=== PATIENT | male | born 1970 | race American Indian/Alaskan Native ===

== ENCOUNTER 2020-09-28 09:45 | Emergency (ER) | payer BC ==
[2020-09-28 09:56] VITALS: BP 142/94; PULSE 63
--- NOTE | 2020-09-28 10:13 | EDM.PDOC ---
ED HPI GENERAL MEDICAL PROBLEM - General Chief Complaint: General Stated Complaint: [facility] Time Seen by Provider: 09/28/20 09:56 Source of Information: Reports: Patient History Limitations: Reports: No Limitations - History of Present Illness INITIAL COMMENTS - FREE TEXT/NARRATIVE: 50-year-old male of [place] ancestry presents to the ED per [facility]. Patient reports that he appreciated numbness tingling and perhaps some mild weakness in his left lower extremity last evening I greater than 12 hours ago. Last known well time was estimated to be around 1800 hrs. last evening. Was still present this morning. He can still walk fairly normally does not feel really off balance. Denies any recent falls or closed head injuries. No history of CVA. He has a history of hypertension has been off medication for over a week. He is also been off several other medications of which we are trying to obtain the names of. He is not diabetic. Has a mild headache. No nausea or vomiting no visual acuity changes. He has not had COVID-19 illness. No past history of cerebrovascular disease. Patient states he is prone to muscle cramps particularly back arms and lower extremities. Of note the patient did take 2 baby aspirin's at home this morning before coming to the ED. Onset: Gradual Onset Date: 09/27/20 Duration: Hour(s):, Constant Location: Reports: Head (With headache.), Lower Extremity, Left (Left lower extremity paresthesias and perhaps mild weakness.) Quality: Reports: Other (CC is left lower extremity.) Severity: Mild Improves with: Reports: None Worsens with: Reports: None Context: Denies: Activity, Exercise, Lifting, Sick Contact, Trauma, Other Associated Symptoms: Reports: Headaches, Weakness. 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 None.) - Related Data Allergies Allergy/AdvReac Type Severity Reaction Status Date / Time No Known Allergies Allergy Verified 09/28/20 09:55 Home Meds: Home Meds Aspirin 81 mg PO DAILY 09/28/20 [History] Cholecalciferol (Vitamin D3) [Vitamin D3] 5,000 mg PO DAILY 09/28/20 [History] atorvaSTATin [Lipitor] 40 mg PO DAILY 09/28/20 [History] lisinopriL [Lisinopril] 5 mg PO DAILY 09/28/20 [History] Past Medical History - Past Health History Medical/Surgical History: Denies Medical/Surgical History Cardiovascular History: Reports: Hypertension Social & Family History - Living Situation & Occupation Living situation: Reports: Occupation: Employed ED ROS GENERAL - Review of Systems Review Of Systems: See Below Constitutional: Reports: Weakness, Fatigue. Denies: Fever, Chills, Malaise, Decreased Appetite (Left lower extremity.), Weight Loss HEENT: Reports: Glasses Respiratory: Reports: No Symptoms Cardiovascular: Reports: No Symptoms Endocrine: Reports: No Symptoms GI/Abdominal: Reports: No Symptoms. Denies: Diarrhea, Nausea, Vomiting : Reports: No Symptoms Musculoskeletal: Reports: No Symptoms Skin: Reports: No Symptoms Neurological: Reports: Headache (Mild headache.), Numbness, Tingling (Left lower extremity numbness tingling), Weakness. Denies: Confusion, Dizziness, Pre- Existing Deficit, Seizure, Syncope, Tremors, Trouble Speaking (Reps mild weakness left lower extremity.), Difficulty Walking, Change in Speech, Gait Disturbance, Other Psychiatric: Reports: No Symptoms Hematologic/Lymphatic: Reports: No Symptoms Immunologic: Reports: No Symptoms ED EXAM, GENERAL - Physical Exam Exam: See Below Exam Limited By: No Limitations (Very vague historian.) General Appearance: Alert, WD/WN, No Apparent Distress, Other (Temperature is 36.1. Heart rate 63 and sinus respiratory is 18 with O2 sats of 98% room air BP 142/94.) Eye Exam: Bilateral Eye: Normal Inspection, PERRL Throat/Mouth: Normal Inspection, Normal Lips, Normal Teeth, Normal Oropharynx, Other ([place]ather is in the midline.) Head: Atraumatic, Normocephalic Neck: Normal Inspection, Supple, Non-Tender, Full Range of Motion. No: Carotid Bruit, Lymphadenopathy (L), Lymphadenopathy (R) Respiratory/Chest: No Respiratory Distress, Lungs Clear, Normal Breath Sounds, No Accessory Muscle Use Cardiovascular: Normal Peripheral Pulses, Regular Rate, Rhythm, No Edema, No Gallop, No Murmur, No Rub Peripheral Pulses: 3+: Carotid (L), Carotid (R), Posterior Tibial (L), Posterior Tibial (R), Dorsalis Pedis (L), Dorsalis Pedis (R) GI/Abdominal: Normal Bowel Sounds, Soft, Non-Tender, No Organomegaly, No Abnormal Bruit, No Mass, Other (No surgical scars) (Male) Exam: Deferred Back Exam: Normal Inspection, Full Range of Motion. No: CVA Tenderness (L), CVA Tenderness (R) Extremities: Normal Inspection, Normal Range of Motion, Non-Tender, No Pedal Edema Neurological: Alert, Oriented, CN II-XII Intact, Normal Cognition, Normal Gait (Had a mall walking in the hallway and he had absolutely no problems with), No Motor/Sensory Deficits ( his gait.), Other (No motor power or strength deficits identified in any of his extremities. Rapid alternating movements [id number] and fgkl-[id number] tests were all normal. Negative Romberg sign as well.) Psychiatric: Normal Mood, Flat Affect Skin Exam: Warm, Dry, Intact, Normal Color, No Rash #1 Interpretation EKG Date: 09/28/20 Time: 11:34 Rhythm: NSR Rate (Beats/Min): 63 Reserve: Normal P-Wave: Present QRS: Other (Q waves V1 and V2 consider old anteroseptal myocardial infarction mildly decreased voltage in both limb and precordial leads) ST-T: Other (Nonspecific T wave flattening in lead III only) QT: Normal EKG Interpretation Comments: Abnormal ECG Course - Vital Signs Last Recorded V/S: Last Vital Signs Temp 36.1 C 09/28/20 09:50 Pulse 63 09/28/20 09:50 Resp 18 09/28/20 09:50 BP 142/94 H 09/28/20 09:50 Pulse Ox 98 09/28/20 09:50 - Orders/Labs/Meds Orders: Active Orders 24 hr Category Date Time Status URINALYSIS W/MICROSCOPIC [UA W/MICROSCOPIC] [URIN] Stat Lab 09/28/20 10:07 Ordered Dextrose 5%-Lactated Ringers 1,000 ml Med 09/28/20 10:15 Active IV ASDIRECTED Medication Orders Dextrose/Lactated Ringer's (Dextrose 5%-Lactated Ringers) 1,000 mls @ 125 mls/hr IV ASDIRECTED MEME Last Admin: 09/28/20 10:18 Dose: 125 mls/hr Documented by: MEMEFRAN Labs: Laboratory Tests 09/28/20 09/28/20 09/28/20 Range/Units 10:15 10:15 10:15 WBC 9.37 H (4.23-9.07) K/mm3 RBC 4.95 (4.63-6.08) M/mm3 Hgb 15.0 (13.7-17.5) gm/dl Hct 45.4 (40.1-51.0) % MCV 91.7 (79.0-92.2) fl MCH 30.3 (25.7-32.2) pg MCHC 33.0 (32.2-35.5) g/dl RDW Std Deviation 41.5 (35.1-43.9) fL Plt Count 216 (163-337) K/mm3 MPV 11.1 (9.4-12.3) fl Neut % (Auto) 80.2 H (34.0-67.9) % Lymph % (Auto) 12.9 L (21.8-53.1) % [place] % (Auto) 6.1 (5.3-12.2) % Eos % (Auto) 0.2 L (0.8-7.0) Baso % (Auto) 0.2 (0.1-1.2) % Neut # (Auto) 7.51 H (1.78-5.38) K/mm3 Lymph # (Auto) 1.21 L (1.32-3.57) K/mm3 [place] # (Auto) 0.57 (0.30-0.82) K/mm3 Eos # (Auto) 0.02 L (0.04-0.54) K/mm3 Baso # (Auto) 0.02 (0.01-0.08) K/mm3 PT 10.9 (9.7-12.0) SECONDS INR 1.02 APTT 24.3 (21.7-31.4) SECONDS Sodium 141 (136-145) mEq/L Potassium 4.0 (3.5-5.1) mEq/L Chloride 104 (98-107) mEq/L Carbon Dioxide 28 (21-32) mEq/L Anion Gap 13.0 (5-15) BUN 21 H (7-18) mg/dL Creatinine 1.2 (0.7-1.3) mg/dL Est Cr Clr Drug Dosing 76.04 mL/min Estimated GFR (MDRD) > 60 (>60) mL/min BUN/Creatinine Ratio 17.5 (14-18) Glucose 117 H (74-106) mg/dL Calcium 8.3 L (8.5-10.1) mg/dL Magnesium 2.2 (1.8-2.4) mg/dl Total Bilirubin 0.4 (0.2-1.0) mg/dL AST 22 (15-37) U/L ALT 49 (16-63) U/L Alkaline Phosphatase 74 (46-116) U/L Troponin I < 0.017 (0.00-0.056) ng/mL C-Reactive Protein 0.2 (<1.0) mg/dL NT-Pro-B Natriuret Pep (0-125) pg/mL Total Protein 8.1 (6.4-8.2) g/dl Albumin 3.8 (3.4-5.0) g/dl Globulin 4.3 gm/dL Albumin/Globulin Ratio 0.9 L (1-2) 09/28/ Range/Units 10:15 WBC (4.23-9.07) K/mm3 RBC (4.63-6.08) M/mm3 Hgb (13.7-17.5) gm/dl Hct (40.1-51.0) % MCV (79.0-92.2) fl MCH (25.7-32.2) pg MCHC (32.2-35.5) g/dl RDW Std Deviation (35.1-43.9) fL Plt Count (163-337) K/mm3 MPV (9.4-12.3) fl Neut % (Auto) (34.0-67.9) % Lymph % (Auto) (21.8-53.1) % [place] % (Auto) (5.3-12.2) % Eos % (Auto) (0.8-7.0) Baso % (Auto) (0.1-1.2) % Neut # (Auto) (1.78-5.38) K/mm3 Lymph # (Auto) (1.32-3.57) K/mm3 [place] # (Auto) (0.30-0.82) K/mm3 Eos # (Auto) (0.04-0.54) K/mm3 Baso # (Auto) (0.01-0.08) K/mm3 PT (9.7-12.0) SECONDS INR APTT (21.7-31.4) SECONDS Sodium (136-145) mEq/L Potassium (3.5-5.1) mEq/L Chloride (98-107) mEq/L Carbon Dioxide (21-32) mEq/L Anion Gap (5-15) BUN (7-18) mg/dL Creatinine (0.7-1.3) mg/dL Est Cr Clr Drug Dosing mL/min Estimated GFR (MDRD) (>60) mL/min BUN/Creatinine Ratio (14-18) Glucose (74-106) mg/dL Calcium (8.5-10.1) mg/dL Magnesium (1.8-2.4) mg/dl Total Bilirubin (0.2-1.0) mg/dL AST (15-37) U/L ALT (16-63) U/L Alkaline Phosphatase (46-116) U/L Troponin I (0.00-0.056) ng/mL C-Reactive Protein (<1.0) mg/dL NT-Pro-B Natriuret Pep 22 (0-125) pg/mL Total Protein (6.4-8.2) g/dl Albumin (3.4-5.0) g/dl Globulin gm/dL Albumin/Globulin Ratio (1-2) Meds: Medications Generic Name Dose Route Start Last Admin Trade Name Freq PRN Reason Stop Dose Admin Dextrose/Lactated Ringer's 1,000 mls @ 125 mls/hr 09/28/20 10:15 09/28/20 10:18 Dextrose 5%-Lactated Ringers IV 125 mls/hr ASDIRECTED MEME Administration - Radiology Interpretation Free Text/Narrative:: 50-year-old male of [place] ancestry presents to the ED with paresthesias in his left lower extremity. Is questionable whether there is any associated weakness. The patient seems to feel some subjective subjective degree of weakness in the left lower extremity. I cannot identify this on examination. Motor power and tone in all 4 extremities was normal. He can walk normally in the hallway. Plan CT head will be done due to associated headache. Routine labs performed ECG will be done. At this time there is no convincing evidence of any cerebrovascular disorder. - Re-Assessments/Exams Free Text/Narrative Re-Assessment/Exam: 09/28/20 10:40 CT of the brain has been completed without contrast. There is no intracranial bleeding. There is no mass-effect. There is very minimal small vessel ischemic demyelination change in both basal ganglia. There are no skull fractures. Bone window settings reveal also thickening within the upper maxillary sinuses as well as within the left side of the sphenoid sinus. Minimal mucosal thickening is seen within the inferior right mastoid sinus as well. No acute osseous abnormalities are appreciated. Chest x-ray reveals mild cardiomegaly. Lung parenchyma are clear with no pleural effusion perhaps very mild hyperinflation. 09/28/20 11:08 Total white count is 9.37 with a left shift of 80.2% neutrophils. Hemoglobin is 15.0 with hematocrit of 45.4. Platelet count is 216,000. PT is 10.9 with an INR of 1.02 and a PTT of 24.3 09/28/20 11:28 PT is 10.9 with an INR of 1.02. PTT is 24.3. Sodium 141 with potassium of 4.0 chloride 104 the bicarb of 28. Anion gap is 13.0. BUN is 21 with a creatinine of 1.2 and a GFR greater than 60. Glucose 117 with a calcium of 8.3 magnesium is 2.2 liver function is normal. Troponin I is less than 0.017 C-reactive protein 0.2 BNP normal at 22. Total protein 8.1 with an albumin fraction of 3.8. 09/28/20 11:51 problem I think with this patient is that he is fatigued. He will take a Tums or Rolaids twice a day to improve his calcium. Regular diet will also improve his serum calcium levels. He will be discharged from the ER at this time. His daughters are here to provide him a ride home back to [place]. Departure - Departure Time of Disposition: 11:52 Disposition: Home, Self-Care 01 Condition: Fair Clinical Impression: Hypocalcemia, Paresthesia of left lower extremity - Discharge Information *PRESCRIPTION DRUG MONITORING PROGRAM REVIEWED*: Not Applicable *COPY OF PRESCRIPTION DRUG MONITORING REPORT IN PATIENT ESTUARDO: Not Applicable Instructions: Hypocalcemia, Adult Referrals: PCP,None [Primary Care Provider] - Forms: ED Department Discharge, ED Return to Work/School Form Additional Instructions: Evaluation in the emergency room today in regards to concerns for possible stroke. You have been experiencing numbness and tingling which we called paresthesias in your left lower extremity for couple of days but worse today. No specific reason for this was identified other than slightly low serum calcium levels in your bloodstream. No evidence of stroke I existed on neuro exam. CT of the brain was completely normal. No heart related illness identified. Suggest plenty of fluids over the weekend. Regular food would usually increase your serum calcium levels back to normal. Taking a Tums or Rolaids twice daily for the next few days would also bring your calcium level back up to normal. Off work until October 02. Sepsis Event Note (ED) - Evaluation Sepsis Screening Result: No Definite Risk - Focused Exam Vital Signs: Vital Signs Temp Pulse Resp BP Pulse Ox 09/28/20 09:50 36.1 C 63 18 142/94 H 98 - My Orders Last 24 Hours: My Active Orders 09/28/20 10:07 URINALYSIS W/MICROSCOPIC [UA W/MICROSCOPIC] [URIN] Stat 09/28/20 10:15 Dextrose 5%-Lactated Ringers 1,000 ml IV ASDIRECTED - Assessment/Plan Last 24 Hours: My Active Orders 09/28/20 10:07 URINALYSIS W/MICROSCOPIC [UA W/MICROSCOPIC] [URIN] Stat 09/28/20 10:15 Dextrose 5%-Lactated Ringers 1,000 ml IV ASDIRECTED
[2020-09-28] MEDS ORDERED: Dextrose 5%-Lactated Ringers 1,000 ML IV SCH (10:15)
--- NOTE | 2020-09-28 10:47 | CT ---
Head CT Technique: Multiple axial sections of the brain were obtained. Intravenous contrast was not utilized. Reconstructed coronal and sagittal images were obtained. Comparison: Prior head CT study of 03/07/15. Findings: Ventricles along with basal cisterns and sulci over the convexities appear within normal limits for the patient's age. No abnormal parenchymal densities are seen. No evidence of intracranial hemorrhage. No midline shift or mass effect is appreciated. Bone window settings were reviewed. Visualized paranasal sinuses show slight mucosal thickening within the upper maxillary sinuses as well as within the left side of the sphenoid sinus. Minimal mucosal thickening is seen within the inferior right mastoid sinus. No acute osseous abnormality is appreciated. Impression: 1. Sinus findings which are most likely chronic. 2. No acute intracranial abnormality is appreciated. Diagnostic code #2
--- NOTE | 2020-09-28 11:01 | CR ---
Chest: Portable view of the chest was obtained. Comparison: Prior chest x-ray of 05/21/14. Heart size and mediastinum are normal. Lungs are clear with no acute parenchymal change. No acute osseous finding is appreciated. Impression: 1. Nothing acute is seen on portable chest x-ray. Diagnostic code #1
== END 2020-09-28 12:05 | disposition home or self-care (01) ==
LOC: JD.ED 09:45
DX: E83.51 Hypocalcemia (principal); I10 Essential (primary) hypertension; Z79.82 Long term (current) use of aspirin; Z79.899 Other long term (current) drug therapy
CPT/HCPCS: 36415; 70450; 71045; 80053; 83735; 83880; 84484; 85025; 85610; 85730; 86140; 93005; 99285; J7121; 93010; 99284